=== PATIENT | female | born 1975 | race Caucasian/White ===

== ENCOUNTER 2019-08-02 06:17 | Day surgery (SDC) | payer OTHER, SELFPAY ==
[~2019-08-02] VITALS: Ht 157.5 cm; Wt 86.6 kg
[2019-08-02] MEDS ORDERED: fentaNYL 0.05 MG/ML VIAL ONE (08:05)
[2019-08-02] MEDS ORDERED: MIDAZOLAM 2 MG/2 ML VIAL ONE (08:05)
[2019-08-02] MEDS ORDERED: LIDOCAINE 2% 100 MG/5 ML UJET TP ONE (08:05)
[2019-08-02] MEDS ORDERED: fentaNYL 0.05 MG/ML VIAL IVP ONE (09:15)
== END 2019-08-02 09:10 | disposition home or self-care (01) ==
LOC: MMU 06:17 → MDS 06:17
PROVIDERS: ATTEND Internal Medicine Gastroenterology
DX: K62.5 Hemorrhage of anus and rectum (principal); K57.30 Diverticulosis of large intestine without perforation or abscess without bleeding; K64.8 Other hemorrhoids; E66.9 Obesity, unspecified; Z68.35 Body mass index [BMI] 35.0-35.9, adult
CPT/HCPCS: 36415; 45378; 81025; J3010; J2250